=== PATIENT | female | born 1965 | race Caucasian/White ===

== ENCOUNTER 2017-03-06 11:47 | Emergency (ER) | payer OTHER ==
[2017-03-06 12:46] VITALS: BP 133/74
== END 2017-03-06 12:46 | disposition home or self-care (01) ==
LOC: ED 11:47
DX: R19.7 Diarrhea, unspecified (principal); R11.2 Nausea with vomiting, unspecified; R10.13 Epigastric pain; R03.0 Elevated blood-pressure reading, without diagnosis of hypertension; Z79.899 Other long term (current) drug therapy
CPT/HCPCS: Q0162

== ENCOUNTER 2018-03-21 20:58 | Emergency (ER) | payer BC ==
[~2018-03-21] VITALS: Ht 165.1 cm; Wt 72.1 kg
[2018-03-21 21:07] VITALS: Ht 165.1 cm; Wt 72.1 kg
[2018-03-21 22:50] LABS: UA SPECIFIC GRAVITY 1.025 (1.005-1.035); microscopic required? YES; urine erythrocyte 2+ (NEGATIVE)
[2018-03-22 01:40] VITALS: BP 115/63
== END 2018-03-22 01:25 | disposition home or self-care (01) ==
LOC: ED 20:58
PROVIDERS: Emergency Medicine
DX: S29.012A Strain of muscle and tendon of back wall of thorax, initial encounter (principal); X58.XXXA Exposure to other specified factors, initial encounter; Y93.89 Activity, other specified; Y92.89 Other specified places as the place of occurrence of the external cause; Y99.8 Other external cause status